=== PATIENT | female | born 1940 | race Asian ===

== ENCOUNTER 2019-03-24 09:07 | Inpatient (IN) | payer OTHER, MEDICARE ==
[~2019-03-24] VITALS: Ht 162.6 cm; Wt 65.3 kg
--- NOTE | 2019-03-24 09:15 | NUR ---
[id number], HAD A SYNCOPAL EPISODE AT THE [employer], -TRAUMA,-INJURY. AOX3, TO ER BED 9, HOOKED TO MONITOR, CHANGED TO GOWN, PROVIDED W WARM BLANKET, DR WATT AT BEDSIDE
--- NOTE | 2019-03-24 09:20 | NUR ---
BLOOD DRAWN AND SENT TO LAB
--- NOTE | 2019-03-24 09:34 | NUR ---
BARKEEPER AT BEDSIDE.
[2019-03-24 09:37] LABS: BASOPHILS # (AUTO) 0.1 /CMM (0.0-0.2); BASOPHILS % (AUTO) 1.4 % (0.0-2.0); EOSINOPHILS % (AUTO) 1.9 % (0.0-6.0); HEMATOCRIT 38 % (33-45); HEMOGLOBIN 12.7 g/dL (11.5-14.8); LYMPHOCYTES # (AUTO) 1.7 /CMM (0.8-4.8); LYMPHOCYTES % (AUTO) 24.3 % (20.0-44.0); MEAN CORPUSCULAR HGB CONC 34 g/dl (31.0-36.0); MEAN CORPUSCULAR VOLUME 95 fL (82-100); MONOCYTES # (AUTO) 0.7 /CMM (0.1-1.30); MONOCYTES % (AUTO) 9.6 % (2.0-12.0); NEUTROPHILS # (AUTO) 4.3 /CMM (1.8-8.9); NEUTROPHILS % (AUTO) 62.8 % (43.0-81.0); PLATELET COUNT (AUTO) 217 /CMM (150-450); RED BLOOD CELL COUNT(AUTO) 3.95 MIL/uL (4.0-5.2); WHITE BLOOD COUNT (AUTO) 6.8 K/uL (4.3-11.0)
--- NOTE | 2019-03-24 09:40 | NUR ---
WHEELED OUT VIA [facility] FOR CT SCAN.
[2019-03-24 09:42] LABS: CALCIUM, SERUM 8.9 mg/dL (8.5-10.1); CARBON DIOXIDE 25 mmol/L (21-32); CHLORIDE 106 mmol/L (98-107); CREATININE 1.3 mg/dL (0.6-1.3); GLUCOSE 92 mg/dL (74-106); POTASSIUM 3.8 mmol/L (3.5-5.1); SODIUM SERUM 141 mmol/L (136-145); UREA NITROGEN, BLOOD 25 mg/dL (7-18)
[2019-03-24] MEDS ORDERED: ASPI-1169 PO (09:44)
[2019-03-24] MEDS ORDERED: DONE5TAB34 PO (09:44)
[2019-03-24] MEDS ORDERED: METO25TA6 PO (09:44)
[2019-03-24 09:47] LABS: ALANINE AMINOTRANSFERASE 23 U/L (12-78); ALBUMIN 3.3 g/dL (3.4-5.0); ALKALINE PHOSPHATASE 88 U/L (46-116); ASPARTATE AMINOTRANSFERASE 21 U/L (15-37); BILIRUBIN,DIRECT 0.1 mg/dL (0.0-0.2); BILIRUBIN,TOTAL 0.4 mg/dL (0.2-1.0)
--- NOTE | 2019-03-24 11:35 | NUR ---
[facility] [employer] TRAINER GURPREET
--- NOTE | 2019-03-24 11:51 | NUR ---
308-2 TELE, SYNCOPE, GURPREET
[2019-03-24] MEDS: DONEPEZIL 5 MG TABLET PO SCH (12:00)
[2019-03-24] MEDS: ASPIRIN 81 MG TAB.CHEW PO SCH (12:00)
--- NOTE | 2019-03-24 12:20 | NUR ---
REPORT GIVEN TO ELLY ENG OF TELE UNIT
[2019-03-24] MEDS: METOPROLOL TARTRATE 25 MG TABLET PO SCH ×2 (12:25→21:39)
[2019-03-24 13:00] VITALS: BP 144/86
--- NOTE | 2019-03-24 13:00 | NUR ---
[facility] LABORATORY ANALYST ADMITTING NOTES RECEIVED PT ALERT AND ORIENTED X3. SPEAKS ISRAELI ONLY WITH DAUGHTER,RIO AT BEDSIDE TO TRANSLATE. RESPIRATIONS NON LABORED IN ROOM AIR. SKIN INTACT. AMBULATES AD JASSI.WITH LT AC H/L INTACT.DENIES ANY PAIN,DIZZINESS OR DISTRESS. ORIENTATION GIVEN TO HER ROOM AND THE USE OF CALL LIGHT.CALL LIGHT PLACED WITHIN HER REACH.
--- NOTE | 2019-03-24 13:13 | NUR ---
PT REFUSED ALL AM MEDS BECAUSE SHE ALREADY TOOK THE ASA,DONEPEZIL AND LOPRESSOR MEDS THIS AM PER PT'S DAUGHTER,RIO.
[2019-03-24] MEDS ORDERED: IV NS 0.9% 1,000 ML IV PRN (14:12)
[2019-03-24] MEDS ORDERED: ACETAMINOPHEN 325 MG TABLET PO PRN (14:30)
[2019-03-24] MEDS ORDERED: ZOLPIDEM TARTRATE 5 MG TABLET PO PRN (14:30)
[2019-03-24] MEDS ORDERED: MAG HYDROX/AL HYDROX/SIMETH 30 ML UDC PO PRN (14:30)
[2019-03-24] MEDS ORDERED: Z GUARD REMEDY 2 OZ OINT TP PRN (14:30)
[2019-03-24] MEDS ORDERED: HYDROCODONE/APAP 5/325MG 1 EACH TABLET PO PRN (14:30)
[2019-03-24] MEDS ORDERED: MAGNESIUM HYDROXIDE 30 ML UDC PO PRN (14:30)
[2019-03-24] MEDS ORDERED: ONDANSETRON HCL/PF 4 MG/2 ML VIAL IVP PRN (14:30)
[2019-03-24 16:00] VITALS: BP 136/67
--- NOTE | 2019-03-24 16:30 | NUR ---
PT IS SO RESTLESS IN BED TRYING TO GET OOB,PULLING OUT HER IV H/L AND IV LINE,REMOVING THE TELE MONITOR LEADS ON HER CHEST.WITH DAUGHTER AT BEDSIDE.PT'S DTR,RIO IS REQUESTING TO RESTRAIN HER MOM.INFORMED DR FORRESTER AND MADE AWARE.OBTAINED ORDER FOR BILATERAL SOFT WRIST RESTRAINTS. ON TELE MONITOR WITH SR/MIRIAM EPISODES HR [id number].
--- NOTE | 2019-03-24 19:35 | NUR ---
RN OPENING NOTES RECEIVED REPORT FROM DAYSHIFT RN SUMMER Orozco FOUND Pt AWAKE, IN BED. DAUGHTER AT BEDSIDE. GETTING EKG DONE AT BEDSIDE. NO S/S OF ACUTE DISTRESS OR SOB NOTED. RESPIRATIONS EVEN AND UNLABORED. Pt IS A/OX2, WITH BASELINE DEMENTIA, GUINEAN SPEAKING ONLY. DAUGHTER WILL STAY OVERNIGHT TO HELP TRANSLATE FOR Pt. Pt ON TELE MONITOR. TELE READING SB-SR 58-70s. IV ACCESS ON LAC #20G. SAFETY MEASURES IN PLACE. BED LOW, LOCKED, HOB ELEVATED, SIDE RAILS UP, CALL LIGHT & BEDSIDE TABLE WITHIN REACH. WILL CONTINUE TO MONITOR Pt's CONDITION AND SAFETY THROUGHOUT THE NIGHT.
[2019-03-24 19:57] VITALS: BP 147/101
[2019-03-24 20:00] VITALS: BP 147/101
--- NOTE | 2019-03-24 21:00 | NUR ---
RN NOTES SOFT VICTORIA RESTRAINTS ARE CURRENTLY OFF OF Pt SINCE DAUGHTER IS HERE AND WILL BE STAYING AT BEDSIDE.
--- NOTE | 2019-03-24 21:05 | NUR ---
RN NOTES PER DAUGHTER's REQUEST WANTED THE IVF OFF WHILE THE Pt SLEEPS BC Pt HAS TENDENCY TO GET MORE CONFUSED AT NIGHT AND DOES NOT WANT THE Pt TO ACCIDENTALLY REMOVE HER IV. Pt HAS BEEN DRINKING FLUIDS PO THROUGHOUT THE DAY.
[2019-03-25] VITALS: BP 133/78
[2019-03-25 04:00] VITALS: BP 139/95
--- NOTE | 2019-03-25 06:54 | NUR ---
RN CLOSING NOTES NO SIGNIFICANT CHANGES IN Pt's CONDITION. Pt REMAINS STABLE AT THIS TIME. NO S/S OF ACUTE DISTRESS OR SOB NOTED DURING THE SHIFT. Pt IS RESTING COMFORTABLY IN BED. RESPIRATIONS EVEN AND UNLABORED. WITH DAUGHTER AT BEDSIDE. ALL NEEDS MET AND ATTENDED TO. SAFETY MEASURES IN PLACE. TELE READING SB-SR 50-81. WILL ENDORSE TO DAYSHIFT RN FOR Pt's DANIEL.
[2019-03-25 07:39] LABS: BILIRUBIN,TOTAL 0.6 mg/dL (0.2-1.0); CALCIUM, SERUM 8.6 mg/dL (8.5-10.1); CARBON DIOXIDE 25 mmol/L (21-32); CHLORIDE 108 mmol/L (98-107); CREATININE 1.1 mg/dL (0.6-1.3); GLUCOSE 99 mg/dL (74-106); PHOSPHORUS 4.2 mg/dL (2.5-4.9); POTASSIUM 3.8 mmol/L (3.5-5.1); SODIUM SERUM 141 mmol/L (136-145); UREA NITROGEN, BLOOD 20 mg/dL (7-18)
[2019-03-25 07:40] LABS: ALANINE AMINOTRANSFERASE 21 U/L (12-78); ALBUMIN 3.4 g/dL (3.4-5.0); ALKALINE PHOSPHATASE 81 U/L (46-116); ASPARTATE AMINOTRANSFERASE 22 U/L (15-37); MAGNESIUM 2.1 mg/dL (1.8-2.4); TOTAL PROTEIN, SERUM 6.9 g/dL (6.4-8.2)
[2019-03-25 07:42] LABS: CHOLESTEROL 165 mg/dL (<200); HDL CHOLESTEROL 66 mg/dL (40-60); LDL 90 mg/dL (0-99); THYROID STIMULATING HORMONE 1.093 uIU/mL (0.358-3.74); TRIGLYCERIDES 88 mg/dL (30-150)
[2019-03-25 08:00] VITALS: BP_SYST 129; BP_SYST 141; BP_DIAS 51; BP_DIAS 87; BP_DIAS 92
[2019-03-25 08:18] LABS: BASOPHILS % (AUTO) 0.5 % (0.0-2.0); EOSINOPHILS % (AUTO) 1.9 % (0.0-6.0); HEMATOCRIT 39 % (33-45); HEMOGLOBIN 13.1 g/dL (11.5-14.8); LYMPHOCYTES # (AUTO) 1.6 /CMM (0.8-4.8); MEAN CORPUSCULAR HGB CONC 33 g/dl (31.0-36.0); MEAN CORPUSCULAR VOLUME 95 fL (82-100); MONOCYTES # (AUTO) 0.7 /CMM (0.1-1.30); MONOCYTES % (AUTO) 10.5 % (2.0-12.0); NEUTROPHILS # (AUTO) 4.3 /CMM (1.8-8.9); NEUTROPHILS % (AUTO) 63.1 % (43.0-81.0); PLATELET COUNT (AUTO) 199 /CMM (150-450); RED BLOOD CELL COUNT(AUTO) 4.14 MIL/uL (4.0-5.2); WHITE BLOOD COUNT (AUTO) 6.8 K/uL (4.3-11.0)
[2019-03-25] MEDS: ASPIRIN 81 MG TAB.CHEW PO SCH (08:42)
[2019-03-25] MEDS: DONEPEZIL 5 MG TABLET PO SCH (08:42)
[2019-03-25] MEDS: METOPROLOL TARTRATE 25 MG TABLET PO SCH ×2 (08:43→16:57)
[2019-03-25 16:57] VITALS: BP 129/87
--- NOTE | 2019-03-25 17:30 | NUR ---
PATIENT SEEN BY NEUROLOGIST DR. JAIN AND CLEARED FOR D/C TODAY. PATIENT WILL GO WITH A NEW MEDICATION KEPPRA. FIRST DOSE 1000MG WILL BE GIVEN BEFORE D/C.
[2019-03-25] MEDS ORDERED: LEVETIRACETAM (250 MG) 250 MG TABLET PO SCH ×2 (18:30→21:00)
--- NOTE | 2019-03-25 18:57 | NUR ---
PATIENT A/O X1-2 ,AMBULATORY, BASELINE CONFUSED. PATIENT CLEARED FOR DISCHARGE TO HOME BY MD. PATIENT'S DAUGHTER RECEIVED D/C INSTRUCTIONS AND NEW PRESCRIPTION FOR KEPPRA. TEACHING AND D/C INSTRUCTIONS PROVIDED TO PT'S DAUGHTER: VERBALIZED UNDERSTANDING AND WILL F/U WITH PCP IN 2 WEEKS RECEMENTED. IV LINE REMOVED, ID LINE REMOVED.PT'S SKIN INTACT. ALL BELONGINGS WITH THE PATIENT AND VALUABLE FORM SIGHED.PATIENT SAFELY TRANSFERRED TO [place] [facility] VIA WHEELCHAIR ACCOMPANIED BY DAUGHTER AND SHUTTLE DRIVER.
== END 2019-03-25 18:00 | disposition home or self-care (01) | DRG 53 ==
LOC: ER 09:07 → TELE 12:11 → MED 03-25 08:22
PROVIDERS: ADMIT Internal Medicine; ATTEND Internal Medicine
DX: R56.9 Unspecified convulsions (principal); N17.0 Acute kidney failure with tubular necrosis; Z86.73 Personal history of transient ischemic attack (TIA), and cerebral infarction without residual deficits; I10 Essential (primary) hypertension; F03.90 Unspecified dementia, unspecified severity, without behavioral disturbance, psychotic disturbance, mood disturbance, and anxiety; R15.9 Full incontinence of feces
CPT/HCPCS: 36415; 70450-TC; 71045-TC; 80048-TC; 80053-TC; 80061-TC; 80076-TC; 83735-TC; 84100-TC; 84443-TC; 84484-TC; 85025-TC; 85730-TC; 87081-TC; 93307-TC; 93880-TC; G0378; J7030